=== PATIENT | male | born 1975 | race Caucasian/White ===

== ENCOUNTER 2017-08-13 14:53 | Inpatient (IN) | payer BC ==
[2017-08-13 20:15] VITALS: BMI 27.6
--- NOTE | 2017-08-13 21:17 | HP ---
COWS - Scale Resting Pulse: 0= [place] 80 or Below Sweatin=Flushed/Facial Moisture Restless Observation: 3= Extraneous Movement Pupil Size: 1= Pupils >than Normal Bone or Joint Aches: 4=Acute Joint/Muscle Pain Runny Nose/ Eye Tearin= Nasal Congestion GI Upset > 30mins: 0= None Tremor Observation: 2= Slight Tremor Visible Yawning Observation: 1= 1-2x During Session Anxiety or Irritability: 2=Irritable/Anxious Goose Flesh Skin: 0=Smooth Skin COWS Score: 16 Admission ROS S - HPI Chief Complaint: C/O HEROIN DEPENDENCE. SEEKING DETOX TXMENT Allergies/Adverse Reactions: Allergies Allergy/AdvReac Type Severity Reaction Status Date / Time No Known Allergies Allergy Verified 08/13/17 21:12 History of Present Illness: 42 Y.O. MALE WITH OPIOID DEPENDENCE ADMITTED FOR DETOX TXMENT. REPORTS A 2 YEAR HX. REFERRED BY DON PERDUE. DENIES RECENT DETOX REHAB SERVICE. STATES LAST ONE WAS ABOUT A YEAR AGO. DENIES ANY SIGNIFICANT PERIOD OF CLEAN TIME. Exam Limitations: No Limitations - Ebola screening Have you traveled outside of the country in the last 21 days: No Have you had contact with anyone from an Ebola affected area: No Have you been sick,other than usual withdrawal symptoms: No Do you have a fever: No - Review of Systems Constitutional: Chills, Loss of Appetite, Malaise, Night Sweats EENT: reports: Nose Congestion Respiratory: reports: Shortness of Breath (ASTHMA) Cardiac: reports: No Symptoms Reported GI: reports: Poor Appetite, Abdominal cramping : reports: No Symptoms Reported Musculoskeletal: reports: Back Pain, Joint Pain Integumentary: reports: No Symptoms Reported Neuro: reports: No Symptoms reported Endocrine: reports: No Symptoms Reported Hematology: reports: No Symptoms Reported Psychiatric: reports: Anxious, Depressed Other Systems: Reviewed and Negative Patient History - Patient Medical History Hx Anemia: No Hx Asthma: Yes (ALBUTEROL INH) Hx Chronic Obstructive Pulmonary Disease (COPD): No Hx Cancer: No Hx Cardiac Disorders: No Hx Congestive Heart Failure: No Hx Hypertension: No Hx Hypercholesterolemia: No Hx Pacemaker: No HX Cerebrovascular Accident: No Hx Seizures: No Hx Dementia: No Hx Diabetes: No Hx Gastrointestinal Disorders: No Hx Liver Disease: No Hx Genitourinary Disorders: No Hx Sexually Transmitted Disorders: No Hx Renal Disease (ESRD): No Hx Thyroid Disease: No Hx Human Immunodeficiency Virus (HIV): No Hx Hepatitis C: No Hx Depression: No Hx Suicide Attempt: No Hx Bipolar Disorder: No Hx Schizophrenia: No Other Medical History: DENIES - Patient Surgical History Past Surgical History: No - PPD History Previous Implant?: Yes Documented Results: Negative w/o proof Implanted On Prior [facility] Admission?: No PPD to be Administered?: Yes - Smoking Cessation Smoking history: Current every day smoker Have you smoked in the past 12 months: Yes Aproximately how many cigarettes per day: 0 Cigars Per Day: 0 Hx Chewing Tobacco Use: No Initiated information on smoking cessation: Yes 'Breaking Loose' booklet given: 08/13/17 - Substance & Tx. History Hx Alcohol Use: No Hx Substance Use: Yes Substance Use Type: Cocaine Hx Substance Use Treatment: Yes ([facility]) - Substances Abused HEROIN Route: Inhalation Frequency: Daily Amount used: 7 BAGS Age of first use: 40 Date of Last Use: 08/12/17 Family Disease History - Family Disease History Family Disease History: Other: Father (ALCOHOLISM), Mother (ALCOHOLISM) Admission Physical Exam S - Vital Signs Vital Signs: Vital Signs - 24 hr 08/13/17 20:14 Temperature 98.3 F Pulse Rate 76 Respiratory 18 Rate Blood Pressure 123/77 - Physical General Appearance: Yes: Appropriately Dressed, Mild Distress HEENTM: Yes: EOMI, Normocephalic, Pharynx Normal Respiratory: Yes: Chest Non-Tender, Lungs Clear, Normal Breath Sounds, No Respiratory Distress, No Accessory Muscle Use Neck: Yes: No masses,lesions,Nodules, Supple, Trachea in good position Breast: Yes: Breast Exam Deferred Cardiology: Yes: Regular Rhythm, Regular Rate, S1, S2 Abdominal: Yes: Normal Bowel Sounds, Non Tender, Soft Genitourinary: Yes: Within Normal Limits Back: Yes: Normal Inspection Musculoskeletal: Yes: full range of Motion, Gait Steady Extremities: Yes: Normal Range of Motion, Non-Tender, Tremors Lymphatic: Yes: Within Normal Limits - Diagnostic (1) Nicotine dependence Current Visit: Yes Status: Chronic Qualifiers: Nicotine product type: cigarettes Substance use status: uncomplicated Qualified Code(s): F17.210 - Nicotine dependence, cigarettes, uncomplicated; F17.210 - Nicotine dependence, cigarettes, uncomplicated (2) Opioid dependence with withdrawal Current Visit: Yes Status: Chronic (3) Asthma Current Visit: Yes Status: Chronic Qualifiers: Asthma severity: mild Asthma persistence: intermittent Asthma complication type: uncomplicated Qualified Code(s): J45.20 - Mild intermittent asthma, uncomplicated; J45.20 - Mild intermittent asthma, uncomplicated; J45.20 - Mild intermittent asthma, uncomplicated Cleared for Admission S - Detox or Rehab [facility] Level of Care: Medically Managed Detox Regimen/Protocol: Methadone BHS Breath Alcohol Content Breath Alcohol Content: 0 Urine Drug Screen - Results Drug Screen Negative: No Urine Drug Screen Results: OPI-Opiates, PCP-Phencyclidine
[2017-08-13] MEDS ORDERED: MAG HYDROX/AL HYDROX/SIMETH 30 ML UNIT-DOSE CUP PO PRN (21:30)
[2017-08-13] MEDS ORDERED: MAGNESIUM HYDROX 2400MG/30ML ORAL SUSPENSION 30 ML CUP PO PRN (21:30)
[2017-08-13] MEDS ORDERED: MAGNESIUM CITRATE 300 ML BOTTLE PO PRN (21:30)
[2017-08-13] MEDS ORDERED: METHADONE HCL 10 MG TABLET (FOR DETOX USE ONLY) PO ONE ×2 (21:30→23:00)
[2017-08-13] MEDS ORDERED: IBUPROFEN 400 MG TABLET (FP) PO PRN (21:30)
[2017-08-13] MEDS ORDERED: diphenhydrAMINE HCL 50 MG CAPSULE PO PRN (21:30)
[2017-08-13] MEDS ORDERED: P-EPHED 60MG/TRIPROLIDI 2.5MG TABLET PO PRN (21:30)
[2017-08-13] MEDS ORDERED: guaiFENesin/D-METHORPHAN HB 10 ML UNIT-DOSE CUPS PO PRN (21:30)
[2017-08-13] MEDS ORDERED: MENTHOL/PHENOL 1 EACH UD MM PRN (21:30)
[2017-08-13] MEDS ORDERED: ACETAMINOPHEN 325 MG TABLET (FP) PO PRN (21:30)
[2017-08-13] MEDS ORDERED: LOPERAMIDE HCL 2 MG CAPSULE PO PRN (21:30)
[2017-08-13] MEDS: THIAMINE HCL 100 MG TABLET (FP) PO SCH (23:04)
[2017-08-13] MEDS: NICOTINE 14 MG/24 HOURS TOPICAL PATCH TD SCH (23:05)
[2017-08-13] MEDS: diazePAM 5 MG TABLET PO PRN (23:05)
[2017-08-14 01:15] LABS: URINE APPEARANCE SLCLOUDY; URINE BILIRUBIN NEGATIVE (NEGATIVE); URINE BLOOD NEGATIVE (NEGATIVE); URINE GLUCOSE (UA) 1+ (NEGATIVE); URINE KETONE TRACE (NEGATIVE); URINE NITRITE NEGATIVE (NEGATIVE); URINE UROBILINOGEN NEGATIVE mg/dL (0.2-1.0)
[2017-08-14 01:17] LABS: URINE COLOR YELLOW; URINE PROTEIN 2+ (NEGATIVE)
[2017-08-14 01:19] LABS: URINE BACTERIA RARE /hpf (NONE SEEN); URINE MUCUS MANY; URINE RBC 50 /hpf (0-3); URINE WBC 5 /hpf (3-5)
[2017-08-14] MEDS ORDERED: METHADONE HCL 10 MG TABLET (FOR DETOX USE ONLY) PO ONE (10:00)
[2017-08-14 10:21] LABS: MCH 29.8 pg (25.7-33.7); MCHC 32.7 g/dl (32.0-35.9); MEAN CELL VOLUME 91.2 fl (80-96); MEAN PLT VOLUME 8.9 fl (7.5-11.1); PLATELET COUNT 235 K/MM3 (134-434); RDW 14.1 % (11.9-15.9); WHITE BLOOD COUNT 8.5 K/mm3 (4.0-10.0)
[2017-08-14] MEDS: PRENATAL VITAMINS W/ FOLIC ACID TABLET (FP) PO SCH (10:32)
[2017-08-14] MEDS: NICOTINE 14 MG/24 HOURS TOPICAL PATCH TD SCH (10:33)
[2017-08-14 10:51] LABS: ALBUMIN 3.2 g/dl (3.4-5.0); ALK PHOS 98 U/L (45-117); ANION GAP 7 (8-16); BILIRUBIN,TOTAL 0.4 mg/dL (0.2-1.0); CALCIUM 8.6 mg/dL (8.5-10.1); CO2 29 mmol/L (21-32); CREATININE 0.8 mg/dL (0.7-1.3); GLUCOSE,RANDOM 89 mg/dL (74-106); SGOT/AST 18 U/L (15-37); SGPT/ALT 27 U/L (12-78); TOT PROT 6.8 g/dl (6.4-8.2)
[2017-08-14 12:32] LABS: URINE LEUK ESTERASE Negative (NEGATIVE)
--- NOTE | 2017-08-14 13:24 | CONSULT ---
[facility] Psychiatric Consult - Data Date of interview: 08/14/17 Admission source: [facility] Identifying data: First admission to [facility] for this 42 y/o male seeking detox treatment on for heroin dependence.Patient is ,a father of two,homeless,unemployed and supported on [facility] benefits. Substance Abuse History: Confirmed by patient in this encounter. Smoking Cessation. Smoking history: Current every day smoker. Have you smoked in the past 12 months: Yes. Aproximately how many cigarettes per day: 0. Cigars Per Day: 0. Hx Chewing Tobacco Use: No. Initiated information on smoking cessation : Yes. 'Breaking Loose' booklet given: 08/13/17. - Substance & Tx. History. Hx Alcohol Use: No. Hx Substance Use: Yes. Substance Use Type: Cocaine. Hx Substance Use Treatment: Yes ([facility]). - Substances Abused. HEROIN. Route: Inhalation. Frequency: Daily. Amount used: 7 BAGS. Age of first use: 40. Date of Last Use: 08/12/17 Medical History: Bronchial asthma. Psychiatric History: Patient denies. Physical/Sexual Abuse/Trauma History: No reported history of abuse. Additional Comment: Urine Drug Screen Results: OPI-Opiates, PCP- Phencyclidine.Noted. Mental Status Exam - Mental Status Exam Alert and Oriented to: Time, Place, Person Cognitive Function: Good Patient Appearance: Disheveled Mood: Hopeful, Euthymic Affect: Appropriate, Normal Range Patient Behavior: Fatigued, Cooperative Speech Pattern: Clear, Appropriate Voice Loudness: Normal Thought Process: Intact, Goal Oriented Thought Disorder: Not Present Hallucinations: Denies Suicidal Ideation: Denies Homicidal Ideation: Denies Insight/Judgement: Poor Sleep: Well Appetite: Good Muscle strength/Tone: Normal Gait/Station: Normal Psychiatric Findings - Problem List ([place] 1, 2,3) (1) Opioid dependence with withdrawal Current Visit: Yes Status: Acute (2) Nicotine dependence Current Visit: Yes Status: Acute Qualifiers: Nicotine product type: cigarettes Substance use status: uncomplicated Qualified Code(s): F17.210 - Nicotine dependence, cigarettes, uncomplicated; F17.210 - Nicotine dependence, cigarettes, uncomplicated (3) PCP abuse Current Visit: Yes Status: Acute (4) Asthma Current Visit: Yes Status: Chronic Qualifiers: Asthma severity: mild Asthma persistence: intermittent Asthma complication type: uncomplicated Qualified Code(s): J45.20 - Mild intermittent asthma, uncomplicated; J45.20 - Mild intermittent asthma, uncomplicated; J45.20 - Mild intermittent asthma, uncomplicated - Initial Treatment Plan Initial Treatment Plan: Psychoeducation.Detoxification.Observation.
--- NOTE | 2017-08-14 16:30 | PN ---
[facility] CIWA - CIWA Score Nausea/Vomitin-No Nausea/No Vomiting Muscle Tremors: 3 Anxiety: 4-Mod. Anxious/Guarded Agitation: 2 Paroxysmal Sweats: 3 Orientation: 0-Oriented Tacttile Disturbances: 3-Moderate Itch/Numb/Burn Auditory Disturbances: 2-Mild Harshness/Frighten Visual Disturbances: 0-None Headache: 0-None Present CIWA-Ar Total Score: 17 BHS Progress Note (SOAP) Subjective: Sweating, Fatigue, Tremors. Objective: PT. A & O X 3, OBSERVED AMBULATING ON UNIT. NO ACUTE DISTRESS. 08/14/17 16:28 Vital Signs Temperature 96.8 F L 08/14/17 10:10 Pulse Rate 61 08/14/17 10:10 Respiratory Rate 18 08/14/17 10:10 Blood Pressure 132/76 08/14/17 10:10 O2 Sat by Pulse Oximetry (%) Laboratory Tests 08/13/17 08/14/17 08/14/17 23:51 08:00 08:00 WBC 8.5 RBC 4.54 Hgb 13.5 Hct 41.4 MCV 91.2 MCH 29.8 MCHC 32.7 RDW 14.1 Plt Count 235 MPV 8.9 Sodium 143 Potassium 3.8 Chloride 107 Carbon Dioxide 29 Anion Gap 7 L BUN 12 Creatinine 0.8 Creat Clearance w eGFR > 60 Random Glucose 89 Calcium 8.6 Total Bilirubin 0.4 AST 18 ALT 27 Alkaline Phosphatase 98 Total Protein 6.8 Albumin 3.2 L Urine Color Yellow Urine Appearance Slcloudy Urine pH 5.0 Ur Specific [place] >= 1.030 H Urine Protein 2+ H Urine Glucose (UA) 1+ H Urine Ketones Trace H Urine Blood Negative Urine Nitrite Negative Urine Bilirubin Negative Urine Urobilinogen Negative Ur Leukocyte Esterase Negative Urine RBC 50 Urine WBC 5 Ur Epithelial Cells Rare Urine Bacteria Rare Urine Mucus Many RPR Titer 08/14/17 08:00 WBC RBC Hgb Hct MCV MCH MCHC RDW Plt Count MPV Sodium Potassium Chloride Carbon Dioxide Anion Gap BUN Creatinine Creat Clearance w eGFR Random Glucose Calcium Total Bilirubin AST ALT Alkaline Phosphatase Total Protein Albumin Urine Color Urine Appearance Urine pH Ur Specific [place] Urine Protein Urine Glucose (UA) Urine Ketones Urine Blood Urine Nitrite Urine Bilirubin Urine Urobilinogen Ur Leukocyte Esterase Urine RBC Urine WBC Ur Epithelial Cells Urine Bacteria Urine Mucus RPR Titer Nonreactive labs noted. Assessment: 08/14/17 16:29 WITHDRAWAL SYMPTOMS. Plan: CONTINUE DETOX. REPEAT UA FOR ADMISSION ABNORMALITIES. INCREASE DAILY PO FLUID INTAKE.
--- NOTE | 2017-08-14 19:43 | EKG ---
Test Reason : Blood Pressure : / mmHG Vent. Rate : 058 BPM Atrial Rate : 058 BPM P-R Int : 176 ms QRS Dur : 096 ms QT Int : 448 ms P-R-T Axes : 066 046 036 degrees QTc Int : 439 ms SINUS BRADYCARDIA WITH RARE APCs NONSPECIFIC ST ABNORMALITY NO PREVIOUS ECGS AVAILABLE CLINICAL CORRELATION IS RECOMMENDED Confirmed by JONATHON DELATORRE MD ([id number]) on 08/14/2017 7:43:29 PM Referred By: Confirmed By:JONATHON DELATORRE MD
[2017-08-14] MEDS: THIAMINE HCL 100 MG TABLET (FP) PO SCH (23:39)
[2017-08-15] MEDS: diazePAM 5 MG TABLET PO PRN (05:52)
[2017-08-15] MEDS ORDERED: METHADONE HCL 5 MG TABLET (FOR DETOX USE ONLY) PO ONE (10:00)
[2017-08-15] MEDS: PRENATAL VITAMINS W/ FOLIC ACID TABLET (FP) PO SCH (10:27)
[2017-08-15] MEDS: NICOTINE 14 MG/24 HOURS TOPICAL PATCH TD SCH (10:27)
[2017-08-15 16:29] LABS: URINE APPEARANCE SLCLOUDY; URINE BILIRUBIN NEGATIVE (NEGATIVE); URINE BLOOD NEGATIVE (NEGATIVE); URINE COLOR DKYELLOW; URINE GLUCOSE (UA) NEGATIVE (NEGATIVE); URINE KETONE NEGATIVE (NEGATIVE); URINE NITRITE NEGATIVE (NEGATIVE); URINE PROTEIN NEGATIVE (NEGATIVE); URINE UROBILINOGEN NEGATIVE mg/dL (0.2-1.0)
[2017-08-15 19:18] LABS: URINE LEUK ESTERASE Negative (NEGATIVE)
--- NOTE | 2017-08-15 19:42 | PN ---
BHS COWS - Scale Resting Pulse: 0= [place] 80 or Below Sweatin=Flushed/Facial Moisture Restless Observation: 1= Difficult to Sit Still Pupil Size: 0= Normal to Room Light Bone or Joint Aches: 2= Severe Diffuse Aches Runny Nose/ Eye Tearin= Runny Nose/Eyes GI Upset > 30mins: 2= Nausea/Diarrhea Tremor Observation of Outstretched Hands: 2= Slight Tremor Visible Yawning Observation: 1= 1-2x During Session Anxiety or Irritability: 2=Irritable/Anxious Goose Flesh Skin: 0=Smooth Skin COWS Score: 14 BHS Progress Note (SOAP) Subjective: Sweating,interrupted sleep,restless,tremors,anxiety. Objective: 08/15/17 19:41 Vital Signs - 8 hr 08/15/17 08/15/17 13:36 17:45 Temperature 98.2 F 97.9 F Pulse Rate 60 66 Respiratory 18 18 Rate Blood Pressure 103/73 96/61 Laboratory Last Values WBC 8.5 K/mm3 (4.0-10.0) 08/14/17 08:00 RBC 4.54 M/mm3 (4.00-5.60) 08/14/17 08:00 Hgb 13.5 GM/dL (11.7-16.9) 08/14/17 08:00 Hct 41.4 % (35.4-49) 08/14/17 08:00 MCV 91.2 fl (80-96) 08/14/17 08:00 MCH 29.8 pg (25.7-33.7) 08/14/17 08:00 MCHC 32.7 g/dl (32.0-35.9) 08/14/17 08:00 RDW 14.1 % (11.9-15.9) 08/14/17 08:00 Plt Count 235 K/MM3 (134-434) 08/14/17 08:00 MPV 8.9 fl (7.5-11.1) 08/14/17 08:00 Sodium 143 mmol/L (136-145) 08/14/17 08:00 Potassium 3.8 mmol/L (3.5-5.1) 08/14/17 08:00 Chloride 107 mmol/L (98-107) 08/14/17 08:00 Carbon Dioxide 29 mmol/L (21-32) 08/14/17 08:00 Anion Gap 7 (8-16) L 08/14/17 08:00 BUN 12 mg/dL (7-18) 08/14/17 08:00 Creatinine 0.8 mg/dL (0.7-1.3) 08/14/17 08:00 Creat Clearance w eGFR > 60 (>60) 08/14/17 08:00 Random Glucose 89 mg/dL (74-106) 08/14/17 08:00 Calcium 8.6 mg/dL (8.5-10.1) 08/14/17 08:00 Total Bilirubin 0.4 mg/dL (0.2-1.0) 08/14/17 08:00 AST 18 U/L (15-37) 08/14/17 08:00 ALT 27 U/L (12-78) 08/14/17 08:00 Alkaline Phosphatase 98 U/L (45-117) 08/14/17 08:00 Total Protein 6.8 g/dl (6.4-8.2) 08/14/17 08:00 Albumin 3.2 g/dl (3.4-5.0) L 08/14/17 08:00 Urine Color Dkyellow 08/15/17 14:40 Urine Appearance Slcloudy 08/15/17 14:40 Urine pH 6.0 (5.0-8.0) 08/15/17 14:40 Ur Specific [place] 1.025 (1.005-1.025) 08/15/17 14:40 Urine Protein Negative (NEGATIVE) 08/15/17 14:40 Urine Glucose (UA) Negative (NEGATIVE) 08/15/17 14:40 Urine Ketones Negative (NEGATIVE) 08/15/17 14:40 Urine Blood Negative (NEGATIVE) 08/15/17 14:40 Urine Nitrite Negative (NEGATIVE) 08/15/17 14:40 Urine Bilirubin Negative (NEGATIVE) 08/15/17 14:40 Urine Urobilinogen Negative mg/dL (0.2-1.0) 08/15/17 14:40 Ur Leukocyte Esterase Negative (NEGATIVE) 08/15/17 14:40 Urine RBC 50 /hpf (0-3) 08/13/17 23:51 Urine WBC 5 /hpf (3-5) 08/13/17 23:51 Ur Epithelial Cells Rare /hpf (FEW) 08/13/17 23:51 Urine Bacteria Rare /hpf (NONE SEEN) 08/13/17 23:51 Urine Mucus Many 08/13/17 23:51 RPR Titer Nonreactive (NONREACTIVE) 08/14/17 08:00 labs noted Assessment: 08/15/17 19:42 Withdrawal sx. Plan: Continue detox
[2017-08-15] MEDS: THIAMINE HCL 100 MG TABLET (FP) PO SCH (22:10)
[2017-08-16] MEDS ORDERED: METHADONE HCL 5 MG TABLET (FOR DETOX USE ONLY) PO ONE (10:00)
[2017-08-16] MEDS: PRENATAL VITAMINS W/ FOLIC ACID TABLET (FP) PO SCH (10:18)
[2017-08-16] MEDS: diazePAM 5 MG TABLET PO PRN (10:18)
[2017-08-16] MEDS: NICOTINE 14 MG/24 HOURS TOPICAL PATCH TD SCH (10:18)
--- NOTE | 2017-08-16 10:46 | PN ---
BHS Progress Note (SOAP) Subjective: SWEATS,ANXIETY,FATIGUE. Objective: 08/16/17 10:45 Vital Signs Temperature 98.4 F 08/16/17 06:27 Pulse Rate 62 08/16/17 06:27 Respiratory Rate 18 08/16/17 06:27 Blood Pressure 119/78 08/16/17 06:27 O2 Sat by Pulse Oximetry (%) Laboratory Last Values WBC 8.5 K/mm3 (4.0-10.0) 08/14/17 08:00 RBC 4.54 M/mm3 (4.00-5.60) 08/14/17 08:00 Hgb 13.5 GM/dL (11.7-16.9) 08/14/17 08:00 Hct 41.4 % (35.4-49) 08/14/17 08:00 MCV 91.2 fl (80-96) 08/14/17 08:00 MCH 29.8 pg (25.7-33.7) 08/14/17 08:00 MCHC 32.7 g/dl (32.0-35.9) 08/14/17 08:00 RDW 14.1 % (11.9-15.9) 08/14/17 08:00 Plt Count 235 K/MM3 (134-434) 08/14/17 08:00 MPV 8.9 fl (7.5-11.1) 08/14/17 08:00 Sodium 143 mmol/L (136-145) 08/14/17 08:00 Potassium 3.8 mmol/L (3.5-5.1) 08/14/17 08:00 Chloride 107 mmol/L (98-107) 08/14/17 08:00 Carbon Dioxide 29 mmol/L (21-32) 08/14/17 08:00 Anion Gap 7 (8-16) L 08/14/17 08:00 BUN 12 mg/dL (7-18) 08/14/17 08:00 Creatinine 0.8 mg/dL (0.7-1.3) 08/14/17 08:00 Creat Clearance w eGFR > 60 (>60) 08/14/17 08:00 Random Glucose 89 mg/dL (74-106) 08/14/17 08:00 Calcium 8.6 mg/dL (8.5-10.1) 08/14/17 08:00 Total Bilirubin 0.4 mg/dL (0.2-1.0) 08/14/17 08:00 AST 18 U/L (15-37) 08/14/17 08:00 ALT 27 U/L (12-78) 08/14/17 08:00 Alkaline Phosphatase 98 U/L (45-117) 08/14/17 08:00 Total Protein 6.8 g/dl (6.4-8.2) 08/14/17 08:00 Albumin 3.2 g/dl (3.4-5.0) L 08/14/17 08:00 Urine Color Dkyellow 08/15/17 14:40 Urine Appearance Slcloudy 08/15/17 14:40 Urine pH 6.0 (5.0-8.0) 08/15/17 14:40 Ur Specific [place] 1.025 (1.005-1.025) 08/15/17 14:40 Urine Protein Negative (NEGATIVE) 08/15/17 14:40 Urine Glucose (UA) Negative (NEGATIVE) 08/15/17 14:40 Urine Ketones Negative (NEGATIVE) 08/15/17 14:40 Urine Blood Negative (NEGATIVE) 08/15/17 14:40 Urine Nitrite Negative (NEGATIVE) 08/15/17 14:40 Urine Bilirubin Negative (NEGATIVE) 08/15/17 14:40 Urine Urobilinogen Negative mg/dL (0.2-1.0) 08/15/17 14:40 Ur Leukocyte Esterase Negative (NEGATIVE) 08/15/17 14:40 Urine RBC 50 /hpf (0-3) 08/13/17 23:51 Urine WBC 5 /hpf (3-5) 08/13/17 23:51 Ur Epithelial Cells Rare /hpf (FEW) 08/13/17 23:51 Urine Bacteria Rare /hpf (NONE SEEN) 08/13/17 23:51 Urine Mucus Many 08/13/17 23:51 RPR Titer Nonreactive (NONREACTIVE) 08/14/17 08:00 Assessment: 08/16/17 10:46 WITHDRAWAL SX Plan: CONTINUE DETOX
[2017-08-16] MEDS: THIAMINE HCL 100 MG TABLET (FP) PO SCH (22:12)
[2017-08-17] MEDS: PRENATAL VITAMINS W/ FOLIC ACID TABLET (FP) PO SCH (09:59)
[2017-08-17] MEDS ORDERED: METHADONE HCL 10 MG TABLET (FOR DETOX USE ONLY) PO ONE (10:00)
[2017-08-17] MEDS: NICOTINE 14 MG/24 HOURS TOPICAL PATCH TD SCH (10:00)
--- NOTE | 2017-08-17 12:48 | PN ---
BHS Progress Note (SOAP) Subjective: Body Aches, Stomach Cramping, Sweating, anxious. Objective: PT. A & O X 3, OBSERVED AMBULATING ON UNIT. NO ACUTE DISTRESS. 08/17/17 12:46 Vital Signs Temperature 97.1 F L 08/17/17 10:05 Pulse Rate 68 08/17/17 10:05 Respiratory Rate 18 08/17/17 10:05 Blood Pressure 112/70 08/17/17 10:05 O2 Sat by Pulse Oximetry (%) Laboratory Tests 08/13/17 08/14/17 08/14/17 23:51 08:00 08:00 WBC 8.5 RBC 4.54 Hgb 13.5 Hct 41.4 MCV 91.2 MCH 29.8 MCHC 32.7 RDW 14.1 Plt Count 235 MPV 8.9 Sodium 143 Potassium 3.8 Chloride 107 Carbon Dioxide 29 Anion Gap 7 L BUN 12 Creatinine 0.8 Creat Clearance w eGFR > 60 Random Glucose 89 Calcium 8.6 Total Bilirubin 0.4 AST 18 ALT 27 Alkaline Phosphatase 98 Total Protein 6.8 Albumin 3.2 L Urine Color Yellow Urine Appearance Slcloudy Urine pH 5.0 Ur Specific [place] >= 1.030 H Urine Protein 2+ H Urine Glucose (UA) 1+ H Urine Ketones Trace H Urine Blood Negative Urine Nitrite Negative Urine Bilirubin Negative Urine Urobilinogen Negative Ur Leukocyte Esterase Negative Urine RBC 50 Urine WBC 5 Ur Epithelial Cells Rare Urine Bacteria Rare Urine Mucus Many RPR Titer 08/14/17 08/15/17 08:00 14:40 WBC RBC Hgb Hct MCV MCH MCHC RDW Plt Count MPV Sodium Potassium Chloride Carbon Dioxide Anion Gap BUN Creatinine Creat Clearance w eGFR Random Glucose Calcium Total Bilirubin AST ALT Alkaline Phosphatase Total Protein Albumin Urine Color Dkyellow Urine Appearance Slcloudy Urine pH 6.0 Ur Specific [place] 1.025 Urine Protein Negative Urine Glucose (UA) Negative Urine Ketones Negative Urine Blood Negative Urine Nitrite Negative Urine Bilirubin Negative Urine Urobilinogen Negative Ur Leukocyte Esterase Negative Urine RBC Urine WBC Ur Epithelial Cells Urine Bacteria Urine Mucus RPR Titer Nonreactive LABS NOTED. Assessment: 08/17/17 12:47 WITHDRAWAL SYMPTOMS. Plan: CONTINUE DETOX.
[2017-08-17] MEDS: THIAMINE HCL 100 MG TABLET (FP) PO SCH (21:37)
[2017-08-18] MEDS ORDERED: METHADONE HCL 5 MG TABLET (FOR DETOX USE ONLY) PO ONE (06:00)
[2017-08-18 10:01] VITALS: BP 100/65; PULSE 81; TEMP 96.9
[2017-08-18] MEDS: NICOTINE 14 MG/24 HOURS TOPICAL PATCH TD SCH (10:04)
[2017-08-18] MEDS: PRENATAL VITAMINS W/ FOLIC ACID TABLET (FP) PO SCH (10:04)
--- NOTE | 2017-08-18 15:42 | DS ---
[facility] Detox Discharge Summary Admission Date: 08/13/17 Discharge Date: 08/18/17 - History Present History: Opioid Dependence, Pcp Dependence Additional Comments: PATIENT GOING TO [facility] ([place], [place] FOR AFTERCARE. pATIENT WAS DISCHARGED FROM DETOX UNIT IN STABLE MEDICAL CONDITION. Pertinent Past History: Asthma, Nicotine Dependence, PCP Dependence. - Physical Exam Results Vital Signs: Vital Signs Temperature 96.9 F L 08/18/17 10:01 Pulse Rate 81 08/18/17 10:01 Respiratory Rate 20 08/18/17 10:01 Blood Pressure 100/65 08/18/17 10:01 O2 Sat by Pulse Oximetry (%) Pertinent Admission Physical Exam Findings: WITHDRAWAL SYMPTOMS. Laboratory Tests 08/13/17 08/14/17 08/14/17 23:51 08:00 08:00 WBC 8.5 RBC 4.54 Hgb 13.5 Hct 41.4 MCV 91.2 MCH 29.8 MCHC 32.7 RDW 14.1 Plt Count 235 MPV 8.9 Sodium 143 Potassium 3.8 Chloride 107 Carbon Dioxide 29 Anion Gap 7 L BUN 12 Creatinine 0.8 Creat Clearance w eGFR > 60 Random Glucose 89 Calcium 8.6 Total Bilirubin 0.4 AST 18 ALT 27 Alkaline Phosphatase 98 Total Protein 6.8 Albumin 3.2 L Urine Color Yellow Urine Appearance Slcloudy Urine pH 5.0 Ur Specific [place] >= 1.030 H Urine Protein 2+ H Urine Glucose (UA) 1+ H Urine Ketones Trace H Urine Blood Negative Urine Nitrite Negative Urine Bilirubin Negative Urine Urobilinogen Negative Ur Leukocyte Esterase Negative Urine RBC 50 Urine WBC 5 Ur Epithelial Cells Rare Urine Bacteria Rare Urine Mucus Many RPR Titer 08/14/17 08/15/17 08:00 14:40 WBC RBC Hgb Hct MCV MCH MCHC RDW Plt Count MPV Sodium Potassium Chloride Carbon Dioxide Anion Gap BUN Creatinine Creat Clearance w eGFR Random Glucose Calcium Total Bilirubin AST ALT Alkaline Phosphatase Total Protein Albumin Urine Color Dkyellow Urine Appearance Slcloudy Urine pH 6.0 Ur Specific [place] 1.025 Urine Protein Negative Urine Glucose (UA) Negative Urine Ketones Negative Urine Blood Negative Urine Nitrite Negative Urine Bilirubin Negative Urine Urobilinogen Negative Ur Leukocyte Esterase Negative Urine RBC Urine WBC Ur Epithelial Cells Urine Bacteria Urine Mucus RPR Titer Nonreactive LABS NOTED. - Treatment Hospital Course: Detox Protocol Followed, Detoxed Safely, Responded well, Discharged Condition Good, Rehab Referral Accepted Patient has Accepted a Rehab Referral to: [facility] ([place], [place] - Medication Discharge Medications: Ambulatory Orders NK [No Known Home Medication] 08/13/17 - Diagnosis (1) Nicotine dependence Status: Chronic Qualifiers: Nicotine product type: cigarettes Substance use status: in withdrawal Qualified Code(s): F17.213 - Nicotine dependence, cigarettes, with withdrawal; F17.213 - Nicotine dependence, cigarettes, with withdrawal (2) Opioid dependence with withdrawal Status: Acute (3) PCP abuse Status: Acute (4) Asthma Status: Chronic Qualifiers: Asthma severity: mild Asthma persistence: intermittent Asthma complication type: uncomplicated Qualified Code(s): J45.20 - Mild intermittent asthma, uncomplicated; J45.20 - Mild intermittent asthma, uncomplicated; J45.20 - Mild intermittent asthma, uncomplicated - AMA Did Patient Leave Against Medical Advice: No
== END 2017-08-18 11:35 | disposition home or self-care (01) | DRG 773 ==
LOC: YASAS 14:53 → Y3N 22:06
PROVIDERS: ADMIT Internal Medicine; ATTEND Internal Medicine
PROC: HZ2ZZZZ Detoxification Services for Substance Abuse Treatment (ICD-10-PCS; principal; 2017-08-13)
DX: F11.23 Opioid dependence with withdrawal (principal); F16.10 Hallucinogen abuse, uncomplicated; F17.213 Nicotine dependence, cigarettes, with withdrawal; J45.20 Mild intermittent asthma, uncomplicated
CPT/HCPCS: 36415; 80053; 81003; 81015; 85027; 86593; 93005; 93010

== ENCOUNTER 2019-08-03 11:06 | Inpatient (IN) | payer OTHER ==
[2019-08-03 11:56] VITALS: BMI 40.3
--- NOTE | 2019-08-03 12:51 | HP ---
COWS - Scale Resting Pulse: 0= [place] 80 or Below Sweatin= Chills/Flushing Restless Observation: 1= Difficult to Sit Still Pupil Size: 0= Normal to Room Light Bone or Joint Aches: 1= Mild Discomfort Runny Nose/ Eye Tearin= Nasal Congestion GI Upset > 30mins: 1= Stomach Cramp Tremor Observation: 1= Tremor [place], Not Seen Yawning Observation: 1= 1-2x During Session Anxiety or Irritability: 1=Feels Anxious/Irritable Goose Flesh Skin: 3=Piloerection COWS Score: 11 CIWA Score - Admission Criteria OASAS Guidelines: Admission for Medically Managed Detox: Requires at least one of the followin. CIWA greater than 12 2. Seizures within the past 24 hours 3. Delirium tremens within the past 24 hours 4. Hallucinations within the past 24 hours 5. Acute intervention needed for co occurring medical disorder 6. Acute intervention needed for co occurring psychiatric disorder 7. Severe withdrawal that cannot be handled at a lower level of care (continued vomiting, continued diarrhea, abnormal vital signs) requiring intravenous medication and/or fluids 8. Admission ROS [facility] Chief Complaint: James Sanchez is a 43 year old male presenting for heroin detox. Allergies/Adverse Reactions: Allergies Allergy/AdvReac Type Severity Reaction Status Date / Time No Known Allergies Allergy Verified 08/03/19 11:46 History of Present Illness: James Sanchez is a 43 year old male presenting for heroin detox. Heroin: 4-5 bags per day at max use ever. Has been using for last 3-4 years. Intranasal use, denies IVDU. Denies overdose. Does not have a Narcan kit and [facility] is not interested in obtaining one. [facility] gets heroin from a single dealer. Longest period of sobriety was several months stating that he wanted to stop using. Returned to using after incarceration. During withdrawal has diarrhea, cramps, tremors, muscle aches Has been to detox and rehab in the past. Previous admission here in 2017. Is planning on going to outpatient program after detox. [facility] program. Medical History: asthma, arthritis Surgical History: R ankle surgery s/p fracture Meds: asthma pump Smokinppd for 20 years Social: apartment, with ex and kids. Unemployed. Disability. Currently on pre-trial, federal case. Has to report to PO, knows that he is here. - Ebola screening Have you traveled outside of the country in the last 21 days: No Have you had contact with anyone from an Ebola affected area: No Do you have a fever: No - Review of Systems Constitutional: Chills EENT: reports: Nose Congestion Respiratory: reports: Cough Cardiac: reports: No Symptoms Reported GI: reports: No Symptoms Reported : reports: No Symptoms Reported Musculoskeletal: reports: Back Pain Integumentary: reports: No Symptoms Reported Neuro: reports: Numbness Endocrine: reports: Increased Thirst Hematology: reports: No Symptoms Reported Psychiatric: reports: Judgement Intact, Orientated x3, Anxious Patient History - Patient Medical History Hx Anemia: No Hx Asthma: Yes (ALBUTEROL INH) Hx Chronic Obstructive Pulmonary Disease (COPD): No Hx Cancer: No Hx Cardiac Disorders: No Hx Congestive Heart Failure: No Hx Hypertension: No Hx Hypercholesterolemia: No Hx Pacemaker: No HX Cerebrovascular Accident: No Hx Seizures: No Hx Dementia: No Hx Diabetes: No Hx Gastrointestinal Disorders: No Hx Liver Disease: No Hx Genitourinary Disorders: No Hx Sexually Transmitted Disorders: No Hx Renal Disease (ESRD): No Hx Thyroid Disease: No Hx Human Immunodeficiency Virus (HIV): No Hx Hepatitis C: No Hx Depression: No Hx Suicide Attempt: No Hx Bipolar Disorder: No Hx Schizophrenia: No - Patient Surgical History Past Surgical History: No Hx Neurologic Surgery: No Hx Cataract Extraction: No Hx Cardiac Surgery: No Hx Lung Surgery: No Hx Breast Surgery: No Hx Breast Biopsy: No Hx Abdominal Surgery: No Hx Appendectomy: No Hx Cholecystectomy: No Hx Genitourinary Surgery: No Hx Section: No Hx Orthopedic Surgery: Yes (R ankle surgery) Anesthesia Reaction: No - PPD History Previous Implant?: Yes Documented Results: Negative w/o proof Implanted On Prior [facility] Admission?: Yes Date: 08/15/17 PPD to be Administered?: Yes - Smoking Cessation Smoking history: Current every day smoker Have you smoked in the past 12 months: Yes Aproximately how many cigarettes per day: 0 Cigars Per Day: 0 Hx Chewing Tobacco Use: No Initiated information on smoking cessation: Yes 'Breaking Loose' booklet given: 08/03/19 - Substances abused Heroin Substance route: Inhalation Frequency: Daily Amount used: 4-5 bags Age of first use: 41 Date of last use: 08/02/19 Admission Physical Exam BHS - Vital Signs Vital Signs: Vital Signs - 24 hr 08/03/19 11:46 Temperature 98.7 F Pulse Rate 76 Respiratory 20 Rate Blood Pressure 108/71 - Physical General Appearance: Yes: Appropriately Dressed, Mild Distress HEENTM: Yes: Hearing grossly Normal, Normocephalic, Normal Voice, PELON, Pharynx Normal Respiratory: Yes: Chest Non-Tender, No Respiratory Distress, Wheezing Neck: Yes: No masses,lesions,Nodules, Trachea in good position Breast: Yes: Breast Exam Deferred Cardiology: Yes: Regular Rhythm, Regular Rate, S1, S2 Abdominal: Yes: Normal Bowel Sounds, Non Tender, Flat, Soft Back: Yes: Normal Inspection Musculoskeletal: Yes: full range of Motion, Gait Steady Extremities: Yes: Normal Capillary Refill, Normal Inspection, Normal Range of Motion, Non-Tender 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, Fully Oriented, Alert, Motor Strength 5/5, Normal Mood/Affect, Normal Response Integumentary: Yes: Normal Color, Dry, Warm - Diagnostic (1) Opioid dependence with withdrawal Current Visit: No Status: Acute (2) Asthma Current Visit: No Status: Chronic Qualifiers: Asthma severity: mild Asthma persistence: intermittent Asthma complication type: uncomplicated Qualified Code(s): J45.20 - Mild intermittent asthma, uncomplicated (3) Nicotine dependence Current Visit: No Status: Chronic Qualifiers: Nicotine product type: cigarettes Substance use status: in withdrawal Qualified Code(s): F17.213 - Nicotine dependence, cigarettes, with withdrawal Cleared for Admission [facility] - Detox or Rehab [facility] Level of Care: Medically Managed Detox Regimen/Protocol: Methadone Breathalyzer - Breathalyzer Breathalyzer: 0 Urine Drug Screen - Test Device Lot number: [id number] Expiration date: 04/07/21 - Control Is test valid?: Yes - Results Drug screen NEGATIVE: No Urine drug screen results: MOP-Opiates Inpatient Rehab Admission - Rehab Decision to Admit Inpatient rehab admission?: No
[2019-08-03] MEDS ORDERED: MENTHOL/PHENOL 1 EACH UD MM PRN (13:17)
[2019-08-03] MEDS ORDERED: METHADONE HCL 5 MG TABLET (FOR DETOX USE ONLY) PO PRN (13:17)
[2019-08-03] MEDS ORDERED: MAGNESIUM CITRATE 300 ML BOTTLE PO PRN (13:17)
[2019-08-03] MEDS ORDERED: cloNIDine HCL 0.1 MG TABLET PO PRN (13:17)
[2019-08-03] MEDS ORDERED: MAG HYDROX/AL HYDROX/SIMETH 30 ML UNIT-DOSE CUP PO PRN (13:17)
[2019-08-03] MEDS ORDERED: BISMUTH SUBSALICYLATE 262 MG/15 ML BTL PO PRN (13:17)
[2019-08-03] MEDS ORDERED: MAGNESIUM HYDROX 2400MG/30ML ORAL SUSPENSION 30 ML CUP PO PRN (13:17)
[2019-08-03] MEDS ORDERED: IBUPROFEN 400 MG TABLET (FP) PO PRN (13:17)
[2019-08-03] MEDS ORDERED: hydrOXYzine PAMOATE 25 MG CAPSULE (FP) PO PRN (13:17)
[2019-08-03] MEDS ORDERED: METHOCARBAMOL 500 MG TABLET PO PRN (13:17)
[2019-08-03] MEDS ORDERED: ACETAMINOPHEN 325 MG TABLET (FP) PO PRN ×2 (13:17)
[2019-08-03] MEDS ORDERED: ALBUTEROL SO4 2.5/IPRATROPIUM 0.5 INH SOL 3 ML VIAL.NEB. NEB PRN (13:21)
--- NOTE | 2019-08-03 13:21 | PN ---
Teaching Attending Note Name of Resident: Praveen Martino ATTENDING PHYSICIAN STATEMENT I saw and evaluated the patient. I reviewed the resident's note and discussed the case with the resident. I agree with the resident's findings and plan as documented. SUBJECTIVE: 43 y.o. male w/ opioid use x 2 years , reports latest use yesterday 2 bags heroin to mitigate w/d sympt oms, prior use Wednesday 4 bags heroin via inhalation , denies ivdu , reports relapse 2 weeks ago , was incarcerated x 7 months , released June 2019 , went to parole and had + utox , sent to [facility] yesterday and during intake was referred to this facility for detox , Denies OD , reports prior participation in [facility] 2 years ago does not recall name of facility , mdd 50 mg . PMHX / PSHX : r ankle surgery , asthma . on SSD " for many year s, I don't know why " OBJECTIVE: obese , mild distress , restless, fidgeting , evasive answers to questions Vital Signs - 24 hr 08/03/19 11:46 Temperature 98.7 F Pulse Rate 76 Respiratory 20 Rate Blood Pressure 108/71 ASSESSMENT AND PLAN: opioid use, episodic - modified Methadone detox
[2019-08-03 14:38] LABS: HEMATOCRIT 40.7 % (35.4-49); HEMOGLOBIN 13.1 GM/dL (11.7-16.9); MCH 28.7 pg (25.7-33.7); MCHC 32.1 g/dl (32.0-35.9); MEAN CELL VOLUME 89.3 fl (80-96); MEAN PLT VOLUME 8.6 fl (7.5-11.1); PLATELET COUNT 272 K/MM3 (134-434); RBC 4.56 M/mm3 (4.00-5.60)
[2019-08-03] MEDS ORDERED: METHADONE HCL 5 MG TABLET (FOR DETOX USE ONLY) PO ONE (14:40)
[2019-08-03 14:46] LABS: ALBUMIN 3.6 g/dl (3.4-5.0); BILIRUBIN,TOTAL 0.2 mg/dL (0.2-1); BLOOD UREA NITROGEN 17.8 mg/dL (7-18); POTASSIUM 4.5 mmol/L (3.5-5.1); TOT PROT 7.3 g/dl (6.4-8.2)
[2019-08-03] MEDS: THIAMINE HCL 100 MG TABLET (FP) PO SCH (22:19)
[2019-08-04] MEDS ORDERED: METHADONE HCL 10 MG TABLET (FOR DETOX USE ONLY) PO ONE (10:00)
[2019-08-04] MEDS: PRENATAL VITAMINS W/ FOLIC ACID TABLET (FP) PO SCH (11:00)
[2019-08-04] MEDS: NICOTINE 14 MG/24 HOURS TOPICAL PATCH TD SCH (11:03)
--- NOTE | 2019-08-04 11:31 | PN ---
BHS COWS - Scale Resting Pulse: 0= [place] 80 or Below Sweatin= Chills/Flushing Restless Observation: 1= Difficult to Sit Still Pupil Size: 0= Normal to Room Light Bone or Joint Aches: 1= Mild Discomfort Runny Nose/ Eye Tearin= Nasal Congestion GI Upset > 30mins: 1= Stomach Cramp Tremor Observation of Outstretched Hands: 1= Tremor [place], Not Seen Yawning Observation: 2= >3x During Session Anxiety or Irritability: 1=Feels Anxious/Irritable Goose Flesh Skin: 0=Smooth Skin COWS Score: 9 BHS Progress Note (SOAP) Subjective: c/o interrupted sleep, chills sweats . Reports no prior hx of MAt tx, plans attend out patient upon d/c. MAT options reviewed. Objective: 08/04/19 11:31 Vital Signs Temperature 97.9 F 08/04/19 09:18 Pulse Rate 60 08/04/19 09:18 Respiratory Rate 20 08/04/19 09:18 Blood Pressure 126/72 08/04/19 09:18 O2 Sat by Pulse Oximetry (%) Laboratory Last Values WBC 11.0 K/mm3 (4.0-10.0) H 08/03/19 13:40 RBC 4.56 M/mm3 (4.00-5.60) 08/03/19 13:40 Hgb 13.1 GM/dL (11.7-16.9) 08/03/19 13:40 Hct 40.7 % (35.4-49) 08/03/19 13:40 MCV 89.3 fl (80-96) 08/03/19 13:40 MCH 28.7 pg (25.7-33.7) 08/03/19 13:40 MCHC 32.1 g/dl (32.0-35.9) 08/03/19 13:40 RDW 14.0 % (11.9-15.9) 08/03/19 13:40 Plt Count 272 K/MM3 (134-434) 08/03/19 13:40 MPV 8.6 fl (7.5-11.1) 08/03/19 13:40 Sodium 142 mmol/L (136-145) 08/03/19 13:40 Potassium 4.5 mmol/L (3.5-5.1) 08/03/19 13:40 Chloride 109 mmol/L (98-107) H 08/03/19 13:40 Carbon Dioxide 29 mmol/L (21-32) 08/03/19 13:40 Anion Gap 4 MMOL/L (8-16) L 08/03/19 13:40 BUN 17.8 mg/dL (7-18) 08/03/19 13:40 Creatinine 1.0 mg/dL (0.55-1.3) 08/03/19 13:40 Est GFR (CKD-EPI)AfAm 107.12 08/03/19 13:40 Est GFR (CKD-EPI)NonAf 92.42 08/03/19 13:40 Random Glucose 80 mg/dL (74-106) 08/03/19 13:40 Calcium 9.0 mg/dL (8.5-10.1) 08/03/19 13:40 Total Bilirubin 0.2 mg/dL (0.2-1) 08/03/19 13:40 AST 16 U/L (15-37) 08/03/19 13:40 ALT 42 U/L (13-61) 08/03/19 13:40 Alkaline Phosphatase 113 U/L (45-117) 08/03/19 13:40 Total Protein 7.3 g/dl (6.4-8.2) 08/03/19 13:40 Albumin 3.6 g/dl (3.4-5.0) 08/03/19 13:40 RPR Titer Nonreactive (NONREACTIVE) 08/03/19 13:40 HIV 1&2 Antibody Screen Negative 08/03/19 13:40 HIV P24 Antigen Negative 08/03/19 13:40 Assessment: 08/04/19 11:34 AOx3 no acute distress EENT WNL Full ROM no gait abnormality no edema or erythema Plan: increase PO fluids Continue detox continue to monitor
[2019-08-04] MEDS: THIAMINE HCL 100 MG TABLET (FP) PO SCH (22:51)
[2019-08-05] MEDS ORDERED: METHADONE HCL 5 MG TABLET (FOR DETOX USE ONLY) PO ONE (10:00)
[2019-08-05] MEDS: NICOTINE 14 MG/24 HOURS TOPICAL PATCH TD SCH (10:18)
[2019-08-05] MEDS: PRENATAL VITAMINS W/ FOLIC ACID TABLET (FP) PO SCH (10:18)
--- NOTE | 2019-08-05 10:28 | PN ---
S COWS - Scale Resting Pulse: 0= [place] 80 or Below Sweatin= Beads of Sweat on Face Restless Observation: 1= Difficult to Sit Still Pupil Size: 0= Normal to Room Light Bone or Joint Aches: 0= None Runny Nose/ Eye Tearin= None GI Upset > 30mins: 0= None Tremor Observation of Outstretched Hands: 2= Slight Tremor Visible Yawning Observation: 1= 1-2x During Session Anxiety or Irritability: 2=Irritable/Anxious Goose Flesh Skin: 0=Smooth Skin COWS Score: 9 S Progress Note (SOAP) Subjective: c/o chills, shakes, anxiety, and irritability. Objective: 08/05/19 10:25 Vital Signs 08/05/19 08/05/19 08/05/19 03:30 07:02 09:40 Temperature 97.9 F 98.4 F Pulse Rate 63 61 Respiratory 18 18 16 Rate Blood Pressure 114/73 120/66 Lab Results WBC 11.0 K/mm3 (4.0-10.0) H 08/03/19 13:40 RBC 4.56 M/mm3 (4.00-5.60) 08/03/19 13:40 Hgb 13.1 GM/dL (11.7-16.9) 08/03/19 13:40 Hct 40.7 % (35.4-49) 08/03/19 13:40 MCV 89.3 fl (80-96) 08/03/19 13:40 MCHC 32.1 g/dl (32.0-35.9) 08/03/19 13:40 RDW 14.0 % (11.9-15.9) 08/03/19 13:40 Plt Count 272 K/MM3 (134-434) 08/03/19 13:40 Sodium 142 mmol/L (136-145) 08/03/19 13:40 Potassium 4.5 mmol/L (3.5-5.1) 08/03/19 13:40 Chloride 109 mmol/L (98-107) H 08/03/19 13:40 Carbon Dioxide 29 mmol/L (21-32) 08/03/19 13:40 Anion Gap 4 MMOL/L (8-16) L 08/03/19 13:40 BUN 17.8 mg/dL (7-18) 08/03/19 13:40 Creatinine 1.0 mg/dL (0.55-1.3) 08/03/19 13:40 Random Glucose 80 mg/dL (74-106) 08/03/19 13:40 Calcium 9.0 mg/dL (8.5-10.1) 08/03/19 13:40 Labs noted. Assessment: 08/05/19 10:26 AOX3, in no acute respiratory distress. Full ROM, ambulating in the unit. Withdrawal symptoms. Plan: continue detox.
[2019-08-05] MEDS: THIAMINE HCL 100 MG TABLET (FP) PO SCH (21:36)
[2019-08-05] MEDS: MELATONIN 5 MG TABLETS PO PRN (21:36)
[2019-08-06] MEDS: NICOTINE 14 MG/24 HOURS TOPICAL PATCH TD SCH (10:42)
[2019-08-06] MEDS: PRENATAL VITAMINS W/ FOLIC ACID TABLET (FP) PO SCH (10:44)
[2019-08-06] MEDS ORDERED: METHADONE HCL 5 MG TABLET (FOR DETOX USE ONLY) PO ONE (11:16)
[2019-08-06] MEDS ORDERED: cloNIDine HCL 0.1 MG TABLET PO PRN (11:22)
--- NOTE | 2019-08-06 12:17 | PN ---
BHS COWS - Scale Resting Pulse: 0= [place] 80 or Below Sweatin= Chills/Flushing Restless Observation: 3= Extraneous Movement Pupil Size: 0= Normal to Room Light Bone or Joint Aches: 2= Severe Diffuse Aches Runny Nose/ Eye Tearin= Runny Nose/Eyes GI Upset > 30mins: 2= Nausea/Diarrhea Tremor Observation of Outstretched Hands: 2= Slight Tremor Visible Yawning Observation: 0= None Anxiety or Irritability: 2=Irritable/Anxious Goose Flesh Skin: 0=Smooth Skin COWS Score: 14 BHS Progress Note (SOAP) Subjective: Chills, stomachache, patient stated he feels sick from withdrawal sxs. As per chart review, patient received methadone 5mg PO once on 08/05/19. Addiction Counselor also called and spoke with greeting card writer regarding patient's increased withdrawal sxs. Objective: 08/06/19 12:16 Last Vital Signs Temp Pulse Resp BP Pulse Ox 96.1 F L 77 20 134/84 08/06/19 09:59 08/06/19 09:59 08/06/19 09:59 08/06/19 09:59 Elevated b/p 134/84: denies htn, most likely r/t withdrawal, started on clonidine prn for withdrawal and elevated b/p Laboratory Tests 08/03/19 08/03/19 08/03/19 13:40 13:40 13:40 WBC 11.0 H RBC 4.56 Hgb 13.1 Hct 40.7 MCV 89.3 MCH 28.7 MCHC 32.1 RDW 14.0 Plt Count 272 MPV 8.6 Sodium 142 Potassium 4.5 Chloride 109 H Carbon Dioxide 29 Anion Gap 4 L BUN 17.8 Creatinine 1.0 Est GFR (CKD-EPI)AfAm 107.12 Est GFR (CKD-EPI)NonAf 92.42 Random Glucose 80 Calcium 9.0 Total Bilirubin 0.2 AST 16 ALT 42 Alkaline Phosphatase 113 Total Protein 7.3 Albumin 3.6 RPR Titer Nonreactive HIV 1&2 Antibody Screen HIV P24 Antigen 08/03/19 13:40 WBC RBC Hgb Hct MCV MCH MCHC RDW Plt Count MPV Sodium Potassium Chloride Carbon Dioxide Anion Gap BUN Creatinine Est GFR (CKD-EPI)AfAm Est GFR (CKD-EPI)NonAf Random Glucose Calcium Total Bilirubin AST ALT Alkaline Phosphatase Total Protein Albumin RPR Titer HIV 1&2 Antibody Screen Negative HIV P24 Antigen Negative Labs reviewed: wbc 11.0 Assessment: 08/06/19 12:17 Withdrawal sxs Noted with elevated blood pressure and leukocytosis Plan: Continue detox Encouraged PO water intake Methadone detox protocol adjusted as of today: methadone 15mg PO x 1, then methadone 10mg PO x 1 on 08/07 then methadone 5mg PO x 1 on Wednesday Elevated b/p: most likely r/t withdrawal, start clonidine prn Leukocytosis: asymptomatic, repeat CBC
[2019-08-06] MEDS: MELATONIN 5 MG TABLETS PO PRN (22:16)
[2019-08-06] MEDS: THIAMINE HCL 100 MG TABLET (FP) PO SCH (22:16)
--- NOTE | 2019-08-07 09:50 | PN ---
BHS COWS - Scale Resting Pulse: 0= [place] 80 or Below Sweatin= No chills or Flushing Restless Observation: 1= Difficult to Sit Still Pupil Size: 1= Pupils >than Normal Bone or Joint Aches: 1= Mild Discomfort Runny Nose/ Eye Tearin= Nasal Congestion GI Upset > 30mins: 1= Stomach Cramp Tremor Observation of Outstretched Hands: 1= Tremor [place], Not Seen Yawning Observation: 1= 1-2x During Session Anxiety or Irritability: 1=Feels Anxious/Irritable Goose Flesh Skin: 0=Smooth Skin COWS Score: 8 BHS Progress Note (SOAP) Subjective: alert,irritable,interrupted sleep,anxious,pain in the body Objective: 08/07/19 09:48 Vital Signs Temperature 98.1 F 08/07/19 07:44 Pulse Rate 57 L 08/07/19 07:44 Respiratory Rate 18 08/07/19 07:44 Blood Pressure 102/50 L 08/07/19 07:44 O2 Sat by Pulse Oximetry (%) Assessment: 08/07/19 09:49 withdrawal symptom Plan: continue detox methadone regimen,discharge in am
[2019-08-07] MEDS ORDERED: METHADONE HCL 10 MG TABLET (FOR DETOX USE ONLY) PO ONE (10:00)
[2019-08-07] MEDS: PRENATAL VITAMINS W/ FOLIC ACID TABLET (FP) PO SCH (10:20)
[2019-08-07] MEDS: NICOTINE 14 MG/24 HOURS TOPICAL PATCH TD SCH (10:21)
[2019-08-07] MEDS: AMMONIUM LACTATE 12% LOTION 225 GM BOTTLE TP SCH (21:18)
[2019-08-07] MEDS: THIAMINE HCL 100 MG TABLET (FP) PO SCH (21:19)
[2019-08-08] MEDS ORDERED: METHADONE HCL 10 MG TABLET (FOR DETOX USE ONLY) PO ONE (06:00)
[2019-08-08] MEDS ORDERED: METHADONE HCL 5 MG TABLET (FOR DETOX USE ONLY) PO ONE (06:00)
[2019-08-08 09:24] VITALS: BP 124/67
--- NOTE | 2019-08-08 09:28 | DS ---
[facility] Detox Discharge Summary Admission Date: 08/03/19 Discharge Date: 08/08/19 - History Present History: Opioid Dependence, Pcp Dependence - Physical Exam Results Vital Signs: Vital Signs Temperature 97.7 F 08/08/19 09:23 Pulse Rate 74 08/08/19 09:23 Respiratory Rate 18 08/08/19 09:23 Blood Pressure 124/67 08/08/19 09:23 O2 Sat by Pulse Oximetry (%) Pertinent Admission Physical Exam Findings: Pt arrived in withdrawals Laboratory Tests 08/03/19 08/03/19 08/03/19 13:40 13:40 13:40 WBC 11.0 H RBC 4.56 Hgb 13.1 Hct 40.7 MCV 89.3 MCH 28.7 MCHC 32.1 RDW 14.0 Plt Count 272 MPV 8.6 Sodium 142 Potassium 4.5 Chloride 109 H Carbon Dioxide 29 Anion Gap 4 L BUN 17.8 Creatinine 1.0 Est GFR (CKD-EPI)AfAm 107.12 Est GFR (CKD-EPI)NonAf 92.42 Random Glucose 80 Calcium 9.0 Total Bilirubin 0.2 AST 16 ALT 42 Alkaline Phosphatase 113 Total Protein 7.3 Albumin 3.6 RPR Titer Nonreactive HIV 1&2 Antibody Screen HIV P24 Antigen 08/03/19 13:40 WBC RBC Hgb Hct MCV MCH MCHC RDW Plt Count MPV Sodium Potassium Chloride Carbon Dioxide Anion Gap BUN Creatinine Est GFR (CKD-EPI)AfAm Est GFR (CKD-EPI)NonAf Random Glucose Calcium Total Bilirubin AST ALT Alkaline Phosphatase Total Protein Albumin RPR Titer HIV 1&2 Antibody Screen Negative HIV P24 Antigen Negative today pt is aaox3 - Treatment Hospital Course: Detox Protocol Followed, Detoxed Safely, Responded well, Discharged Condition Good, Rehab Referral Accepted Patient has Accepted a Rehab Referral to: pt referred to [facility] - Medication Discharge Medications: Ambulatory Orders NK [No Known Home Medication] 08/13/17 - Diagnosis (1) Opioid dependence with withdrawal Current Visit: Yes Status: Chronic (2) PCP abuse Current Visit: Yes Status: Chronic (3) Asthma Current Visit: Yes Status: Chronic Qualifiers: Asthma severity: mild Asthma persistence: intermittent Asthma complication type: uncomplicated Qualified Code(s): J45.20 - Mild intermittent asthma, uncomplicated (4) Nicotine dependence Current Visit: Yes Status: Chronic Qualifiers: Nicotine product type: cigarettes Substance use status: in withdrawal Qualified Code(s): F17.213 - Nicotine dependence, cigarettes, with withdrawal - AMA Did Patient Leave Against Medical Advice: No
[2019-08-08] MEDS: PRENATAL VITAMINS W/ FOLIC ACID TABLET (FP) PO SCH (09:45)
[2019-08-08] MEDS: AMMONIUM LACTATE 12% LOTION 225 GM BOTTLE TP SCH (09:45)
[2019-08-08] MEDS: NICOTINE 14 MG/24 HOURS TOPICAL PATCH TD SCH (09:45)
[2019-08-08 13:10] VITALS: PULSE 78; TEMP 99
== END 2019-08-08 13:17 | disposition home or self-care (01) | DRG 773 ==
LOC: YASAS 11:06 → Y6N 14:34
PROVIDERS: ADMIT Surgery; ATTEND Surgery
PROC: HZ2ZZZZ Detoxification Services for Substance Abuse Treatment (ICD-10-PCS; principal; 2019-08-03)
DX: F11.23 Opioid dependence with withdrawal (principal); F15.10 Other stimulant abuse, uncomplicated; F17.213 Nicotine dependence, cigarettes, with withdrawal; J45.20 Mild intermittent asthma, uncomplicated; D72.829 Elevated white blood cell count, unspecified; R03.0 Elevated blood-pressure reading, without diagnosis of hypertension
CPT/HCPCS: 36415; 80053; 85027; 86593; 87389